=== PATIENT | female | born 1995 | race Caucasian/White ===

== ENCOUNTER → 2018-02-13 | Outpatient (CLI) | payer OTHER ==
--- NOTE | 2018-02-13 13:49 | USB ---
Reason for exam: clinical finding. History: Family history of breast cancer in paternal grandmother at age 73 and breast cancer in maternal aunt. Taking hormonal contraceptives for 2 years. Indicated problem(s): lump or thickening in the left breast. 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 US Breast LT Left complete breast ultrasound includes all four quadrants, the retroareolar region and axilla. Finding demonstrates no cystic or solid lesion seen. No suspicious sonographic finding. Diffuse dense breast tissue noted. These results were verbally communicated with the patient and result sheet given to the patient on 02/13/18. ASSESSMENT: Negative, BI-RAD 1 RECOMMENDATION: Routine screening mammogram of both breasts at age 41. Manage patient on a clinical basis.
== END | disposition home or self-care (01) ==
LOC: RADUSWWP 12:27
PROVIDERS: ATTEND Family Medicine
DX: N63.21 Unspecified lump in the left breast, upper outer quadrant (principal)